=== PATIENT | female | born 1950 | race Caucasian/White ===

== ENCOUNTER 2017-05-15 19:20 | Emergency (ER) | payer OTHER ==
[~2017-05-15] VITALS: Ht 152.4 cm; Wt 57.2 kg
[~2017-05-15 19:20] MED LIST: ATARAX10 MG PO; CAPOTEN25 MG PO; CEFADROXIL500 MG; HYZAAR 50-12.1 UDTAB; LIPITOR20 MG; MEDROLPACK PO; METHOCARBAMOL500 MG PO; PREVACID15 MG PO; VENOFLASH; XYZAL5 MG PO
== END 2017-05-15 23:56 | disposition home or self-care (01) ==
LOC: ER 19:20 → CPU-OBS 19:41 → ER 19:41
DX: R07.89 Other chest pain (principal); M94.0 Chondrocostal junction syndrome [Tietze]

== ENCOUNTER 2017-06-18 08:25 | Outpatient (CLI) | payer OTHER | END 2017-06-18 08:33 | disposition home or self-care (01) | LOC: RAD 501 08:25 | DX: M15.8 Other polyosteoarthritis (principal); M05.79 Rheumatoid arthritis with rheumatoid factor of multiple sites without organ or systems involvement ==

== ENCOUNTER 2017-08-29 07:19 | Emergency (ER) | payer OTHER ==
[~2017-08-29] VITALS: Ht 149.9 cm; Wt 54.4 kg
[2017-08-29] MEDS ORDERED: DULERA 100 MCG/13 GM (07:37)
[2017-08-29] MEDS ORDERED: ZANTAC150 M3 (07:37)
[2017-08-29] MEDS ORDERED: CYCLOBENZAPRINE10 MG PO (09:29)
[2017-08-29] MEDS ORDERED: TRAMADOL HCL50 MG PO (09:29)
== END 2017-08-29 09:39 | disposition home or self-care (01) ==
LOC: ER 07:19
DX: M25.512 Pain in left shoulder (principal)

== ENCOUNTER 2017-09-11 10:38 | Outpatient (CLI) | payer OTHER ==
[~2017-09-11 10:38] MED LIST changes: +CYCLOBENZAPRINE10 MG PO; +DULERA 100 MCG/13 GM; +TRAMADOL HCL50 MG PO; +ZANTAC150 M3
== END 2017-09-11 10:48 | disposition home or self-care (01) ==
LOC: RAD 501 10:38
DX: M15.0 Primary generalized (osteo)arthritis (principal); M05.79 Rheumatoid arthritis with rheumatoid factor of multiple sites without organ or systems involvement

== ENCOUNTER 2017-10-19 13:07 | Outpatient (CLI) | payer OTHER | END 2017-10-19 13:13 | disposition home or self-care (01) | LOC: MAMO-SONO 13:07 | DX: Z12.31 Encounter for screening mammogram for malignant neoplasm of breast (principal); Z87.898 Personal history of other specified conditions; N63.10 Unspecified lump in the right breast, unspecified quadrant; N63.20 Unspecified lump in the left breast, unspecified quadrant ==

== ENCOUNTER 2017-10-23 11:27 | Outpatient (CLI) | payer OTHER | END 2017-10-23 12:00 | disposition home or self-care (01) | LOC: NUCLEAR 11:27 | DX: I73.9 Peripheral vascular disease, unspecified (principal); I87.2 Venous insufficiency (chronic) (peripheral) ==

== ENCOUNTER → 2017-10-26 | Outpatient (CLI) | payer OTHER | END | disposition home or self-care (01) | LOC: NUCLEAR 11:53 | DX: I73.9 Peripheral vascular disease, unspecified (principal); I87.2 Venous insufficiency (chronic) (peripheral) ==

== ENCOUNTER 2018-06-30 08:20 | Outpatient (CLI) | payer OTHER | END 2018-06-30 08:28 | disposition home or self-care (01) | LOC: RAD 08:20 | DX: R07.89 Other chest pain (principal) ==

== ENCOUNTER 2018-07-16 10:30 | Emergency (ER) | payer OTHER ==
[~2018-07-16] VITALS: Ht 149.9 cm; Wt 59.9 kg
[2018-07-16] MEDS ORDERED: PERCOCET 5-3251 EACH PO (14:06)
== END 2018-07-16 14:34 | disposition home or self-care (01) ==
LOC: ER 10:30
DX: M25.462 Effusion, left knee (principal)

== ENCOUNTER 2018-11-23 08:20 | Outpatient (CLI) | payer OTHER ==
[~2018-11-23 08:20] MED LIST changes: +PERCOCET 5-3251 EACH PO
== END 2018-11-23 08:29 | disposition home or self-care (01) ==
LOC: MAMO-SONO 08:20
DX: Z12.31 Encounter for screening mammogram for malignant neoplasm of breast (principal); Z87.898 Personal history of other specified conditions; Z12.11 Encounter for screening for malignant neoplasm of colon; N63.10 Unspecified lump in the right breast, unspecified quadrant; N63.20 Unspecified lump in the left breast, unspecified quadrant

== ENCOUNTER 2021-07-15 07:12 | Outpatient (CLI) | payer OTHER | END 2021-07-15 07:14 | disposition home or self-care (01) | LOC: RAD 07:12 | PROVIDERS: ATTEND General Practice | DX: M06.4 Inflammatory polyarthropathy (principal) ==

== ENCOUNTER 2021-10-22 23:19 | Emergency (ER) | payer OTHER ==
[~2021-10-22] VITALS: Ht 149.9 cm; Wt 59.9 kg
[2021-10-22] MEDS ORDERED: GLIMEPIRIDE1 M1 (23:47)
[2021-10-22] MEDS ORDERED: PROTONIX40 MG (23:47)
[2021-10-22] MEDS ORDERED: NORVASC5 MG (23:48)
[2021-10-22] MEDS ORDERED: COZAAR25 MG (23:48)
[2021-10-22] MEDS ORDERED: LIPITOR40 MG (23:48)
[2021-10-22] MEDS ORDERED: SINGULAIR10 MG (23:48)
[2021-10-23] MEDS ORDERED: ULTRAM50 MG PO (02:02)
== END 2021-10-23 02:18 ==
LOC: ER 23:19
DX: M25.562 Pain in left knee (principal); Z88.2 Allergy status to sulfonamides; Z88.6 Allergy status to analgesic agent; E11.9 Type 2 diabetes mellitus without complications; Z79.84 Long term (current) use of oral hypoglycemic drugs; I10 Essential (primary) hypertension

== ENCOUNTER 2021-12-03 07:16 | Outpatient (CLI) | payer OTHER ==
[~2021-12-03 07:16] MED LIST changes: +COZAAR25 MG; +GLIMEPIRIDE1 M1; +LIPITOR40 MG; +NORVASC5 MG; +PROTONIX40 MG; +SINGULAIR10 MG; +ULTRAM50 MG PO
== END 2021-12-03 07:18 | disposition home or self-care (01) ==
LOC: MRI 07:16
PROVIDERS: ATTEND Orthopaedic Surgery
DX: S83.201A Bucket-handle tear of unspecified meniscus, current injury, left knee, initial encounter (principal); M25.562 Pain in left knee; M25.561 Pain in right knee
CPT/HCPCS: 73718

== ENCOUNTER 2021-12-30 08:53 | Outpatient (CLI) | payer OTHER | END 2021-12-30 08:57 | disposition home or self-care (01) | LOC: RAD 08:53 | PROVIDERS: ATTEND Internal Medicine Pulmonary Disease | DX: J45.30 Mild persistent asthma, uncomplicated (principal) ==

== ENCOUNTER 2022-10-20 08:43 | Outpatient (CLI) | payer OTHER | END 2022-10-20 08:50 | disposition home or self-care (01) | LOC: RX STUDY 08:43 | PROVIDERS: ATTEND Otolaryngology | DX: R10.13 Epigastric pain (principal) ==

== ENCOUNTER 2024-03-30 18:33 | Emergency (ER) | payer OTHER ==
[~2024-03-30] VITALS: Ht 149.9 cm; Wt 60.3 kg
[2024-03-30] MEDS ORDERED: ANTIVERT25 M2 (18:54)
[2024-03-30] MEDS ORDERED: HALOPERIDOL LACTATE 5 MG/ML AMPUL IM STA (21:00)
[2024-03-30] MEDS ORDERED: CLONIDINE HCL 0.1 MG TABLET PO STA (21:00)
[2024-03-30] MEDS ORDERED: DIPHENHYDRAMINE HCL 50 MG/ML VIAL 1ML IM STA (21:01)
== END 2024-03-30 21:49 | disposition home or self-care (01) ==
LOC: ER 18:35
DX: R53.81 Other malaise (principal); R51.9 Headache, unspecified; I10 Essential (primary) hypertension; Z88.2 Allergy status to sulfonamides; Z88.6 Allergy status to analgesic agent
CPT/HCPCS: 96372; 99282; J1200; J3490

== ENCOUNTER 2024-04-04 09:25 | Emergency (ER) | payer OTHER ==
[~2024-04-04] VITALS: Ht 149.9 cm; Wt 60.3 kg
[~2024-04-04 09:25] MED LIST changes: +ANTIVERT25 M2
[2024-04-04] MEDS ORDERED: TOPROL XL50 M1 (09:55)
[2024-04-04] MEDS ORDERED: DEXAMETHASONE SODIUM PHOSPHATE 4 MG/ML VIAL IM STA (10:34)
== END 2024-04-04 10:56 | disposition home or self-care (01) ==
LOC: ER 09:27
DX: M94.0 Chondrocostal junction syndrome [Tietze] (principal); Z88.2 Allergy status to sulfonamides; Z88.6 Allergy status to analgesic agent; Z88.8 Allergy status to other drugs, medicaments and biological substances
CPT/HCPCS: 96372; 99282; J1100

== ENCOUNTER → 2024-05-23 | Emergency (ER) | payer OTHER ==
[~2024-05-23] VITALS: Ht 149.9 cm; Wt 59.4 kg
[~2024-05-23] MED LIST changes: +FAMOTIDINE/PF 20 MG/2 ML VIAL ONE; +FAMOtidine 10 MG/ML (4ML VIAL) IV PUSH ONE; +ONDANSETRON HCL 2 MG/ML VIAL IV ONE; +ONDANSETRON HCL 2 MG/ML VIAL ONE; +TOPROL XL50 M1
[2024-05-23 14:44] LABS: HEMATOCRIT 44.7 % (36.0-45.00); HEMOGLOBIN 15.3 g/dL (12.0-15.00); MEAN CELL VOLUME 94.2 fL (80.00-100.00); MEAN CORPUSCULAR HEMOGLOBIN 32.4 pg (27.00-32.0); MEAN CORPUSCULAR HGB CONC 34.4 g/dl (32.0-36.0); PLATELET COUNT 447 K/uL (150-450); RED BLOOD COUNT 4.74 M/uL (4.00-6.00); RED CELL DISTRIBUTION WIDTH 12.8 % (11.5-14.5)
[2024-05-23 14:51] LABS: PH,URINE 5.5 (5.0-8.0); URINE APPEARANCE Clear; URINE BILIRRUBIN Negative (NEGATIVE); URINE BLOOD Negative; URINE COLOR Yellow; URINE GLUCOSE Negative (NEGATIVE); URINE KETONE Negative (NEGATIVE); URINE LEUKOCYTE Negative; URINE NITRATE Negative; URINE PROTEIN Negative (NEGATIVE); URINE UROBILINOGEN 0.2 E.U./dl
[2024-05-23 14:54] LABS: URINE BACTERIA 7.3 uL (0.0-1933); URINE EPITHELIAL CELLS 5.8 uL (0.0-38.8); URINE WBC 10.4 uL (0.0-23.2)
[2024-05-23 14:56] LABS: INR 1.02; PARTIAL THROMBOPLASTIN TIME 25.9 SECONDS (22.0-34.0); PROTHROMBIN TIME 11.1 SECONDS (9.0-11.5)
[2024-05-23 14:58] LABS: ALBUMIN 4.1 gm/dL (3.4-5.0); BILIRUBIN TOTAL 0.54 mg/dL (0.3-1.2); CALCIUM 10.5 mg/dL (8.5-10.1); CREATININE SERUM 0.87 mg/dL (0.55-1.02); GLOBULINA 4.8 G/DL (2.4-3.5); TOTAL PROTEIN 8.9 gm/dL (6.4-8.2)
[2024-05-23 15:01] LABS: URINE RBC 1.1 uL (0.0-20.8)
[2024-05-23 18:07] LABS: AMYLASE 73 U/L (25-115); LIPASE 37 U/L (13-75)
== END | disposition home or self-care (01) ==
LOC: ER 11:21
PROVIDERS: General Practice
DX: R10.13 Epigastric pain (principal); F41.9 Anxiety disorder, unspecified; I10 Essential (primary) hypertension; E11.9 Type 2 diabetes mellitus without complications; Z88.2 Allergy status to sulfonamides; Z88.6 Allergy status to analgesic agent
CPT/HCPCS: 36415; 71045; 93005; 96365; 99283; J2405; J3490

== ENCOUNTER 2024-11-25 08:32 | Outpatient (CLI) | payer OTHER ==
[~2024-11-25 08:32] MED LIST changes: -FAMOTIDINE/PF 20 MG/2 ML VIAL ONE; -FAMOtidine 10 MG/ML (4ML VIAL) IV PUSH ONE; -ONDANSETRON HCL 2 MG/ML VIAL IV ONE; -ONDANSETRON HCL 2 MG/ML VIAL ONE
== END 2024-11-25 08:33 | disposition home or self-care (01) ==
LOC: SONOGRAMA 08:32
PROVIDERS: ATTEND Internal Medicine
DX: M25.512 Pain in left shoulder (principal)